=== PATIENT | male | born 1965 | race Caucasian/White ===

== ENCOUNTER 2017-10-21 10:01 | Emergency (ER) | payer BC ==
[~2017-10-21] VITALS: Ht 182.9 cm; Wt 122.5 kg
[2017-10-21 10:05] VITALS: BP 125/78
[2017-10-21] MEDS ORDERED: AUGMENTIN 875-1 EACH PO (10:54)
== END 2017-10-21 11:02 | disposition home or self-care (01) ==
LOC: ER 10:01
DX: J02.9 Acute pharyngitis, unspecified (principal); J34.89 Other specified disorders of nose and nasal sinuses; R05 Cough